=== PATIENT | female | born 1980 | race Caucasian/White ===

== ENCOUNTER 2017-12-25 01:52 | Emergency (ER) | payer MEDICAID ==
[~2017-12-25] VITALS: Ht 165.1 cm; Wt 74.8 kg
== END 2017-12-25 03:00 | disposition left against medical advice (07) ==
LOC: EDBD 01:52 → ER 01:52
DX: F10.129 Alcohol abuse with intoxication, unspecified (principal); Z53.21 Procedure and treatment not carried out due to patient leaving prior to being seen by health care provider